=== PATIENT | female | born 1990 | race Caucasian/White ===

== ENCOUNTER 2018-06-06 11:34 | Outpatient (CLI) | payer MEDICAID, SELFPAY ==
[2018-06-06 14:07] LABS: ALT 37 U/L (12-78); AST 23 U/L (15-37); Albumin 3.3 g/dL (3.4-5.0); Alkaline Phosphatase 74 U/L (46-116); Bilirubin, Direct 0.11 mg/dL (0.00-0.20); Bilirubin, Total 0.3 mg/dL (0.2-1.0); Total Protein 6.6 g/dL (6.4-8.2)
== END 2018-06-06 11:35 ==
PROVIDERS: Advanced Practice Midwife; PCP Nurse Practitioner; Visit Provider Advanced Practice Midwife
DX: B18.2 Chronic viral hepatitis C (principal)
CPT/HCPCS: 36415; 80076

== ENCOUNTER 2018-06-08 18:05 | Outpatient (REF) | payer MEDICAID, SELFPAY | END 2018-06-08 18:06 | LOC: LBN 18:05 | PROVIDERS: PCP Nurse Practitioner; Visit Provider Nurse Practitioner | DX: J02.9 Acute pharyngitis, unspecified (principal) | CPT/HCPCS: 87070 ==

== ENCOUNTER 2018-07-07 14:03 | Outpatient (CLI) | payer MEDICAID, SELFPAY ==
--- NOTE | 2018-07-07 13:37 | DI.US_ITS ---
SYMPTOMS/DIAGNOSIS: ANATOMY SCAN, Z34.90 OBSTETRICAL ULTRASOUND: Many abnormalities cannot be diagnosed. A normal exam does not exclude a congenital anomaly. Radiology No. [id number] LMP: Exam Date: 07/07/2018 [facility] wks days on EDC ([facility]) 12/07/2018 Confirmed: HISTORY: ---- PREDICTED GESTATIONAL AGE NUMBER 18+1 weeks with a range of 17+1 weeks to 19+1 weeks. 1 Determined by___1STUS___LMP___HISTORY PLACENTA PRESENTATION Grade 0-I Cephalic_X__ Anterior___Posterior_X__ Breech____ Right Left Transverse(head right___ Fundal_X__Low-lying___Previa___ Transverse(head left___ Varying BIOMETRY AMNIOTIC FLUID BPD: NS Normal HC: NS AC: 155 mm 20.5 weeks FL: 31 mm 19+5 weeks AMNIOTIC FLUID INDEX >26 WK CRL: mm weeks Cisterna Magna: NS CI: NS RUQ: LUQ Cerebellum: NS EFW: grams Percentile RLQ: LLQ Total: cms Composite AGE= 20+2 wks EDC by US: 11/22/18 BIOPHYSICAL PROFILE ANATOMY IDENTIFIED SCORE 0/2 Heart: 4-Chamber_X__Rate:BPM 173 LVOT: X RVOT:___X Amniotic Fluid(>2cms)____ Stomach:__X Kidneys:__X Respirations (>30 secs) Bladder:___X Post. Fossa:__NS Body Flex/Extension 3-vessel cord:__X Ventricles:___X Cord insertion:__X___ Lips:__NS__ Extremity Flex/Extension Spinal morphology:___X Nose:_NS___ Total Score= Palate:___NS____ NS=not seen COMMENTS: There is a single living intrauterine gestation. Estimated sonographic age is 20 weeks 2 days. The placenta is posterior and fundal. No evidence of previa is identified. The fetus is in the cephalic presentation. heart rate is 173 beats per minute. No or placental abnormalities are identified. Facial features, posterior fossa and intracranial structures were obscured by the presentation. The patient is scheduled to return 07/22/18 for complete survey. IMPRESSION: Single living intrauterine gestation. Estimated sonographic age is 20 weeks 2 days.
== END 2018-07-07 14:23 ==
PROVIDERS: PCP Nurse Practitioner; Visit Provider Midwife
DX: Z34.82 Encounter for supervision of other normal pregnancy, second trimester (principal)
CPT/HCPCS: 76805

== ENCOUNTER 2018-07-08 09:32 | Emergency (ER) | payer MEDICAID, SELFPAY ==
[2018-07-08 09:36] VITALS: BP 106/60; PULSE 71; RESP 18; TEMP 36.8; O2SAT 99
--- NOTE | 2018-07-08 10:25 | W.ED.GENAD ---
Discharge Plan Disposition Patient Disposition: HOME Condition: Good Discharge Details Chief Complaint: FacialProb Clinical Impression: Acute serous otitis media of left ear Primary Care Provider: Nicole Tena ED Provider: Francis Beck Home Meds and New Rx's Prescriptions: Continue buprenorphine-naloxone [Suboxone] 1 EACH film 1 ea Sublingual DAILY RF: 0 PNV,calcium 63-exha-zqlre acid [ Plus (calcium carb)] 1 EACH tablet 1 tab-cap PO DAILY 30 Days Qty: 30 RF: 11 ondansetron [Zofran ODT] 8 MG tablet,disintegrating 8 mg PO TID Qty: 30 RF: 2 methylphenidate HCl [Ritalin] 20 MG tablet 20 mg PO TID Qty: 84 RF: 0 Discharge Instructions Instructions: Serous Otitis Media (ED) Additional Instructions: In addition to taking lzsb-jul-uhmyyke acetaminophen for pain control you may also use nasal saline flushes and irrigants such as simple saline. Just use as directed on packaging. If not improving over the next 2 weeks follow-up with your primary care provider for reassessment. Referrals: Nicole Tena, [employer]ER [Primary Care Provider] - 2 weeks (Follow-up with your primary care provider if not improving over the next 2 weeks) Medical Decision Making MDM Narrative Medical decision making narrative: Patient presenting to the emergency department for complaint of left ear pain for the past 10 days. Patient states that symptoms are preceded by some nasal congestion and sore throat which is now resolved but now has had continued intermittent ear pain with worsening discomfort lying down and with positional changes on left lateral position. Physical exam is unremarkable except for some small air-fluid level seen behind left TM with clear fluid present but no loss of landmarks, no erythema, no gross hearing loss, no other symptoms. I feel the patient has serous otitis media. Doubt mastoiditis, no infectious nature, no signs of parotiditis. Did discuss with patient continued use of acetaminophen due to for pain control and possibly using saline nasal flushes to see if that may help but otherwise patient should follow-up with her primary care in 2 weeks if symptoms are not improving or obtain close follow-up if she develops fever chills or worsening symptoms. After discussion of diagnosis and plan of care patient states no further needs questions or concerns at this time. HPI - General Adult General Mode of arrival: ambulatory. Date/Time Provider Initiated Documentation: 07/08/18 09:54. Limitations to Documentation: no limitations. Information obtained by: patient. History of Present Illness 27 year old F presents to the emergency department with the chief complaint of Left ear pain, described as moderate, with intensity rated at 7. Quality is described as aching, and is localized to the head (Ear) and left. Patient reports no radiation. Patient started experiencing this day(s) (10) and it has been intermittent. No relieving factors improve symptom(s), No exacerbating factors reported . Patient notes no other symptoms.. Patient did receive the following treatments prior to arrival, other (Acetaminophen) Related Data Home Medications Medication Instructions Recorded Confirmed buprenorphine-naloxone [Suboxone] 1 ea SUBLINGUAL DAILY film 02/03/17 07/08/18 Previous Rx's Medication Instructions Recorded PNV,calcium 87-bpyz-qwpcv acid 1 tab-cap PO DAILY 30 Days #30 04/14/18 [ Plus (calcium carb)] tab-cap ondansetron [Zofran ODT] 8 mg PO TID #30 tab-cap 05/09/18 methylphenidate HCl [Ritalin] 20 mg PO TID #84 tab-cap 06/06/18 Allergies Allergy/AdvReac Type Severity Reaction Status Date / Time No Known Allergies Allergy Unverified 07/08/18 09:46 General Stated Complaint: FacialProb STEFANO: 4 Review of Systems Constitutional Denies body ache(s), Denies chills and Denies fever(s) Eyes Patient denies, Denies dry eyes and Denies itchy eyes ENT Reports as per HPI, Denies vertigo, Denies dizziness, Denies ear discharge, Reports otalgia, Denies facial pain, Reports hearing loss (Interim), Reports mouth pain (Occasional drop), Reports nasal congestion (Intermittent now is a) and Denies sinus pain Cardiovascular Denies chest pain and Denies dyspnea Respiratory Denies cough and Denies dyspnea Gastrointestinal Denies abdominal pain, Denies nausea and Denies vomiting Genitourinary Reports other (Currently ) Integumentary/Breasts Denies rash Neurologic Denies confusion, Denies vertigo, Denies dizziness and Denies sensory deficit Psychiatric Denies confusion Allergic/Immunologic Denies itchy eyes [facility] Medical History Opioid abuse (Resolved) Social History adopted: Yes household members: significant other and children number of children: 1 Smoking/Tobacco Use Status: Current every day alcohol intake: never substance use type: former substance user seatbelt use: always Surgical History Tonsillectomy Exam Const General: cooperative, no acute distress and not ill appearing Orientation: alert, awake and oriented x3 HENMT Head: normal to inspection, normocephalic and atraumatic Ears: hearing grossly normal bilaterally, external ears normal, TM normal on the right, mastoids normal, no periauricular adenopathy and TM abnormal with fluid behind the TM on the left (clear with small air fluid levels) General nose exam: external nose normal Face and sinus: normal facial exam Mouth: oral mucosae normal, moist mucous membranes, no drooling, No abnormal TMJ, no trismus and No restricted motion Teeth and gingiva: dentition normal Throat: posterior oropharynx normal and tonsils absent Resp Effort & Inspection: normal respiratory effort, able to speak in complete sentences and no respiratory distress Auscultation: clear to auscultation bilaterally Cardio Rate: regular rate Rhythm: regular rhythm Heart Sounds: S1 normal, S2 normal, normal S1 and S2, no click, no gallops, no murmurs and no rubs Skin General skin exam: no rashes or lesions noted Neuro General: alert, awake, oriented x3, moves all extremities and no focal motor deficits Sensory Exam: no sensory deficits noted Course Vital Signs Temperature 36.8 C 07/08/18 09:36 Pulse 71 07/08/18 09:36 Respiratory Rate 07/08/18 09:36 Blood Pressure 106/60 07/08/18 09:36 Pulse Oximetry 99 07/08/18 09:36 Temperature 36.8 C 07/08/18 09:36 Pulse 71 07/08/18 09:36 Respiratory Rate 18 07/08/18 09:36 Blood Pressure 106/60 07/08/18 09:36 Pulse Oximetry 99 07/08/18 09:36
== END 2018-07-08 10:33 | disposition home or self-care (01) ==
LOC: ER 10:58
PROVIDERS: Emergency Provider Nurse Practitioner Family; PCP Nurse Practitioner
DX: H66.92 Otitis media, unspecified, left ear (principal); Z33.1 Pregnant state, incidental
CPT/HCPCS: 99282

== ENCOUNTER 2018-07-21 13:25 | Outpatient (CLI) | payer MEDICAID, SELFPAY ==
[2018-07-21 14:02] LABS: Glucose,1 Hr (Glucola) 87 mg/dL (80-140)
[2018-07-25 11:05] LABS: AFP 62.7 ng/mL; Calculated age at EDD 26 years; GA used in risk estimate Scan estimate; INHIBIN 138 pg/mL; IVF Pregnancy No; Initial or repeat testing Initial testing; Insulin dependent diabetes No; Maternal Weight 223 lbs; Number of Fetuses 1; Physician Phone Number 802-748-7300; Prev Down(T21)/Trisomy Pregnan No; Prev Pregnancy w/NTD No; RECOMMENDED FOLLOW UP None.; Results Summary Normal risk; hCG, TOTAL 3.1 IU/mL; hCG, TOTAL MoM 0.25 MoM; uE3 1.68 ng/mL; uE3 MoM 1.05 MoM
== END 2018-07-21 13:45 ==
PROVIDERS: PCP Nurse Practitioner; Visit Provider Advanced Practice Midwife
DX: Z34.92 Encounter for supervision of normal pregnancy, unspecified, second trimester (principal)
CPT/HCPCS: 36415; 81511; 82950

== ENCOUNTER 2018-07-27 00:52 | Outpatient (CLI) | payer MEDICAID, SELFPAY ==
--- NOTE | 2018-07-27 09:08 | DI.US_ITS ---
Many abnormalities cannot be diagnosed. A normal exam does not exclude a congenital anomaly. Radiology No. LMP: Exam Date: 07/27/18 [facility] 7 wks on EDC ([facility]) Confirmed: HISTORY: F/U TO COMPLETE SURVEY TO VISUALIZE MOUTH, LIPS, NOSE ---- PREDICTED GESTATIONAL AGE NUMBER 20.6 weeks with a range of 19.6 week to 21.6 weeks. 1 Determined by__X_1STUS___LMP___HISTORY Info. pertaining to fetus # PLACENTA PRESENTATION Grade I Cephalic___ Anterior___Posterior__X_ Breech___X_ Right Left Transverse(head right___ Fundal___Low-lying___Previa___ Transverse(head left___ Varying BIOMETRY AMNIOTIC FLUID BPD: 54 mm 22.2 weeks Normal HC: 200 mm 22.1 weeks AC: 209 mm 25.3 weeks FL: 36 mm 21.2 weeks AMNIOTIC FLUID INDEX >26 WK CRL: mm weeks Cisterna Magna: 4 mm CI: 0.8 RUQ: LUQ Cerebellum: 2.25 cm EFW: 594 grams Percentile RLQ: LLQ Total: cms Composite AGE= 22.6 wks EDC by US__11/24/18 BIOPHYSICAL PROFILE ANATOMY IDENTIFIED SCORE 0/2 Heart: 4-Chamber_X__Rate:BPM__137___ LVOT:___X RVOT: X___ Amniotic Fluid(>2cms)____ Stomach: Kidneys: Respirations (>30 secs) Bladder: Post. Fossa: Body Flex/Extension 3 vessel cord: Ventricles: cord insertion: Lips:__X__ Extremity Flex/Extension spinal morphology: Nose:X Total Score= Palate: NS=not seen Limited OB ultrasound was performed. There is a single living intrauterine gestation. The fetus is in the breech position. heart rate is 137 beats per minute. Estimated weight is 594 grams. The four chamber heart and both right and left ventricular outflow tracts were visualized and are unremarkable. The facial features are unremarkable. Estimated gestational age is 22 weeks 6 days. The placenta is posterior. Amniotic fluid appears within normal limits visually. IMPRESSION: Single living intrauterine gestation. Estimated sonographic age is 22 weeks 6 days.
== END 2018-07-27 01:12 ==
PROVIDERS: PCP Nurse Practitioner; Visit Provider Advanced Practice Midwife
DX: Z34.92 Encounter for supervision of normal pregnancy, unspecified, second trimester (principal); Z36.2 Encounter for other antenatal screening follow-up
CPT/HCPCS: 76815

== ENCOUNTER 2018-08-12 14:59 | Outpatient (REF) | payer MEDICAID, SELFPAY ==
[2018-08-12 17:01] LABS: *AMPHETAMINES SCREEN URINE Negative (Negative); *BARBITURATES SCREEN URINE Negative (Negative); *BENZODIAZEPINES SCREEN URINE Negative (Negative); Cannabinoids THC Negative (Negative); Cocaine Screen,Urine Negative (Negative); METHADONE URINE SCREEN Negative (Negative); OPIATES URINE SCREEN Negative (Negative)
[2018-08-12 17:03] LABS: Tricyclic Antidepressants Negative (Negative)
[2018-08-15 17:58] LABS: Buprenorphine 252.4 ng/mL; Norbuprenorphine 1298.4 ng/mL
== END 2018-08-12 15:19 ==
LOC: LBN 14:59
PROVIDERS: Advanced Practice Midwife; PCP Nurse Practitioner; Visit Provider Nurse Practitioner
DX: Z34.91 Encounter for supervision of normal pregnancy, unspecified, first trimester (principal)
CPT/HCPCS: 80307

== ENCOUNTER 2018-10-13 01:15 | Outpatient (CLI) | payer MEDICAID, SELFPAY ==
--- NOTE | 2018-10-13 11:30 | DI.US_ITS ---
SYMPTOMS/DIAGNOSIS: SERIAL GROWTH DUE TO RITALIN EXPOSURE, 32 WEEKS, Z34.90 OB ULTRASOUND: Many abnormalities cannot be diagnosed. A normal exam does not exclude a congenital anomaly. Radiology No. [id number] LMP: Exam Date: 10/13/2018 [facility] wks days on EDC ([facility]) Confirmed: HISTORY: PREDICTED GESTATIONAL AGE NUMBER 32+1 weeks with a range of 31+1 weeks to 33+1 weeks. 1 Determined by___1STUS___LMP___HISTORY PLACENTA PRESENTATION Grade II Cephalic__X_ Anterior___Posterior_X__ Breech____ Right Left___X____ Transverse(head right___ Fundal___Low-lying___Previa___ Transverse(head left___ Varying BIOMETRY AMNIOTIC FLUID BPD: 91 mm 36+6 weeks Normal HC: 340 mm 39 weeks Oligo Polyhydramnios AC: 294 mm 33+3 weeks FL: 62 mm 32+1 weeks AMNIOTIC FLUID INDEX >26 WK CRL: mm weeks Cisterna Magna: mm CI: RUQ: 3.8 LUQ: 3.9 Cerebellum: cm EFW: 2294 grams Percentile: 89th RLQ: 2.2 LLQ: 3.3 Total: 13.2 cm Composite AGE= wks EDC by US BIOPHYSICAL PROFILE ANATOMY IDENTIFIED SCORE 0/2 Heart: 4-Chamber___Rate:BPM 123 LVOT: RVOT: Amniotic Fluid(>2cms)____ Stomach: Kidneys: Respirations (>30 secs) Bladder: Post. Fossa: Body Flex/Extension 3 vessel cord: Ventricles: cord insertion: Lips:____ Extremity Flex/Extension spinal morphology: Nose: Total Score= Palate: NS=not seen COMMENTS: The examination was carried out according to the usual protocol and reveals a viable cephalic sims. There is an increase in the circumference of the head and BPD measurements, which are significantly ahead of the AC and FL measurements. No obvious anatomical abnormalities are demonstrated on this limited examination. The placenta is left posterior in position. The estimated weight would be in the range of 2294 g, which is in the 89th percentile. SUMMARY: Cephalomegaly is demonstrated and on this limited examination, no discrete information regarding the intracerebral anatomy could be provided. Given these findings, further assessment with a high risk ultrasound obtained at a tertiary center is suggested to further define the status of the fetus. These findings were conveyed to the patient's provider immediately following completion of the study on 10/13/2018 at 11:40 a.m.
== END 2018-10-13 01:35 ==
PROVIDERS: PCP Nurse Practitioner; Visit Provider Nurse Practitioner
DX: Z34.93 Encounter for supervision of normal pregnancy, unspecified, third trimester (principal); Z36.89 Encounter for other specified antenatal screening
CPT/HCPCS: 76816

== ENCOUNTER 2018-10-13 10:00 | Outpatient (CLI) | payer MEDICAID, SELFPAY ==
[2018-10-13 10:34] LABS: HCT 36.3 % (36.0-46.0); HGB 12.5 g/dL (12.0-15.5); Mean Corp. HGB Concentration 34.4 g/dL (32.0-36.0); Mean Corpuscular Hemoglobin 30.3 pg (27.0-33.0); Mean Corpuscular Volume 88.1 fL (80-95); Mean Platelet Volume 9.5 fL (8.0-11.0); Platelet Count 193 x1000/uL (130-400); RBC 4.12 m/cumm (4.00-5.20); White Blood Cell Count 9.51 k/cumm (4.4-10.8)
[2018-10-13 10:43] LABS: Glucose,1 Hr (Glucola) 80 mg/dL (80-140)
[2018-10-21 15:42] LABS: Result Summary NEGATIVE; Specimen WB Whole Blood
== END 2018-10-13 10:20 ==
PROVIDERS: PCP Nurse Practitioner; Visit Provider Advanced Practice Midwife
DX: Z34.93 Encounter for supervision of normal pregnancy, unspecified, third trimester (principal)
CPT/HCPCS: 36415; 82950; 85027; 81220

== ENCOUNTER 2018-11-10 11:47 | Outpatient (CLI) | payer MEDICAID, SELFPAY | END 2018-11-10 12:07 | PROVIDERS: PCP Nurse Practitioner; Visit Provider Advanced Practice Midwife | DX: O36.8130 Decreased fetal movements, third trimester, not applicable or unspecified (principal); Z3A.36 36 weeks gestation of pregnancy | CPT/HCPCS: 59025 ==

== ENCOUNTER 2018-11-10 13:05 | Outpatient (REF) | payer MEDICAID, SELFPAY | END 2018-11-10 13:25 | LOC: LBN 13:05 | PROVIDERS: PCP Nurse Practitioner; Visit Provider Nurse Practitioner | DX: Z34.93 Encounter for supervision of normal pregnancy, unspecified, third trimester (principal); Z36.85 Encounter for antenatal screening for Streptococcus B | CPT/HCPCS: 87081 ==

== ENCOUNTER 2018-11-15 14:42 | Outpatient (CLI) | payer MEDICAID, SELFPAY ==
[2018-11-15 15:29] LABS: HCT 36.4 % (36.0-46.0); HGB 12.2 g/dL (12.0-15.5); Mean Corp. HGB Concentration 33.5 g/dL (32.0-36.0); Mean Corpuscular Hemoglobin 29.5 pg (27.0-33.0); Mean Corpuscular Volume 88.1 fL (80-95); Mean Platelet Volume 10.2 fL (8.0-11.0); Platelet Count 222 x1000/uL (130-400); RBC 4.13 m/cumm (4.00-5.20)
[2018-11-17 09:34] LABS: HIV-1/2 Ag & Ab Screen Negative (NEGAT)
[2018-11-17 09:50] LABS: Hepatitis C Ab w Rflx HCV PCR Reactive (NEGAT)
== END 2018-11-15 15:02 ==
PROVIDERS: PCP Nurse Practitioner; Visit Provider Advanced Practice Midwife
DX: Z34.91 Encounter for supervision of normal pregnancy, unspecified, first trimester (principal); B19.20 Unspecified viral hepatitis C without hepatic coma; Z11.4 Encounter for screening for human immunodeficiency virus [HIV]
CPT/HCPCS: 36415; 85027; 86803; 87389; 87522

== ENCOUNTER 2018-11-23 13:38 | Outpatient (REF) | payer MEDICAID, SELFPAY ==
[2018-11-23 17:00] LABS: PROTEIN 24.6 mg/dL
[2018-11-23 17:11] LABS: Prot/Crea Ur Ratio 0.18
== END 2018-11-23 13:58 ==
LOC: LBN 13:38
PROVIDERS: PCP Nurse Practitioner; Visit Provider Advanced Practice Midwife
DX: Z34.93 Encounter for supervision of normal pregnancy, unspecified, third trimester (principal)
CPT/HCPCS: 82565; 84156

== ENCOUNTER 2018-11-29 12:01 | Inpatient (IN) | payer MEDICAID, SELFPAY ==
[2018-11-29 21:51] LABS: HCT 35.7 % (36.0-46.0); HGB 11.9 g/dL (12.0-15.5); Mean Corp. HGB Concentration 33.3 g/dL (32.0-36.0); Mean Corpuscular Hemoglobin 29.3 pg (27.0-33.0); Mean Corpuscular Volume 87.9 fL (80-95); Mean Platelet Volume 10.3 fL (8.0-11.0); Platelet Count 218 x1000/uL (130-400); RBC 4.06 m/cumm (4.00-5.20); RBC Distribution Width 13.2 % (11.7-14.6)
[2018-11-29] MEDS: Zolpidem 5 MG TAB 10 MG PO (22:37)
[2018-11-30] MEDS: Buprenorphine/Naloxone 8 mg/2 mg FILM 2 EACH SL (09:56)
[2018-11-30] MEDS: Lactated Ringers 1,000 ML 125 ML IV ×2 (14:10→21:54)
[2018-11-30] MEDS: Zolpidem 5 MG TAB 10 MG PO (22:33)
[2018-12-01] MEDS: Lactated Ringers 1,000 ML 125 ML IV ×2 (03:58→11:44)
[2018-12-01] MEDS: Buprenorphine/Naloxone 8 mg/2 mg FILM 2 EACH SL (11:43)
[2018-12-01] MEDS: Lidocaine 5% Patch 1 PATCH TP (18:00)
--- NOTE | 2018-12-01 18:37 | PLAC_PTH ---
PATIENT: Shoshana Rodriguez LOC: OBS U#:[id number] AGE/SX: 28/F ROOM: OBS.304 RE11/29/[address]: Daisy James RN : 1990 BED: A DIS: 12/03/2018 SPEC #: [id number] RECD: 12/02/18 12:35 STATUS: ROGER RETereso #: [id number] HUMPHREY: 12/01/18 18:[address]: Daisy James DEPT: Surgical Specimen RECD BY: Carisa Abbott ENTERED: 12/02/18 12:36 SP TYPE: PLAC OTHR DR: Nicole Tena APRN Tissues: 1 - PLACENTA (3RD TRIMESTER) Procedures: GROSS AND MICRO LEVEL 5 Comments: [id number]
[2018-12-01] MEDS: Methylergonovine 0.2 MG/ML VIAL (19:11)
[2018-12-01] MEDS: Oxytocin 10 UNITS/ML VIAL IM (21:00)
[2018-12-01] MEDS: Patch Removal 1 EACH TP (21:44)
[2018-12-02] MEDS: Acetaminophen 325 MG TAB 650 MG PO ×4 (00:46→14:37)
[2018-12-02] MEDS: Ibuprofen 600 MG TAB PO ×2 (05:26→14:37)
[2018-12-02] MEDS: Buprenorphine/Naloxone 8 mg/2 mg FILM 2 EACH SL (10:10)
[2018-12-02 20:49] LABS: HGB 9.3 g/dL (12.0-15.5); Mean Corp. HGB Concentration 33.2 g/dL (32.0-36.0); Mean Corpuscular Hemoglobin 29.4 pg (27.0-33.0); Mean Corpuscular Volume 88.6 fL (80-95); Mean Platelet Volume 10.5 fL (8.0-11.0); Platelet Count 182 x1000/uL (130-400); RBC 3.16 m/cumm (4.00-5.20); RBC Distribution Width 12.9 % (11.7-14.6); White Blood Cell Count 11.85 k/cumm (4.4-10.8)
[2018-12-03] MEDS: Ibuprofen 600 MG TAB PO (09:11)
[2018-12-03] MEDS: Acetaminophen 325 MG TAB 650 MG PO (09:11)
[2018-12-03] MEDS: Docusate Sodium 100 MG CAP PO (09:11)
[2018-12-03] MEDS: Buprenorphine/Naloxone 8 mg/2 mg FILM 2 EACH SL (10:38)
== END 2018-12-03 16:00 | disposition home or self-care (01) | DRG 806 ==
PROVIDERS: Advanced Practice Midwife; Admitting Provider Advanced Practice Midwife; PCP Nurse Practitioner; Visit Provider Advanced Practice Midwife
DX: O98.42 Viral hepatitis complicating childbirth (principal); O99.324 Drug use complicating childbirth; Z37.0 Single live birth; F11.20 Opioid dependence, uncomplicated; O99.334 Smoking (tobacco) complicating childbirth; O99.344 Other mental disorders complicating childbirth; F90.9 Attention-deficit hyperactivity disorder, unspecified type; B18.2 Chronic viral hepatitis C; F17.210 Nicotine dependence, cigarettes, uncomplicated; Z3A.39 39 weeks gestation of pregnancy; W19.XXXA Unspecified fall, initial encounter
CPT/HCPCS: 85027; 86850; 86900; 86901; 59200; 88307; G0378; J2210; J2590; J3490

== ENCOUNTER 2018-12-24 10:23 | Emergency (ER) | payer MEDICAID, SELFPAY ==
[2018-12-24 10:29] VITALS: BP 111/69; PULSE 103; RESP 18; TEMP 36.6; O2SAT 95
--- NOTE | 2018-12-24 10:40 | W.ED.GENAD ---
Discharge Plan Disposition Patient Disposition: HOME Condition: Good Discharge Details Chief Complaint: RespSymp Clinical Impression: Influenza Primary Care Provider: Nicole Tena ED Provider: Antonio Perdomo Home Meds and New Rx's Prescriptions: New oseltamivir [Tamiflu] 75 mg capsule 75 mg PO BID 5 Days Qty: 10 RF: 0 No Action methylphenidate HCl [Ritalin] 20 mg tablet 20 mg PO TID MDD 3 tabs Qty: 84 RF: 0 Suboxone 12-3 mg film See Patient Comments Sublingual DAILY RF: 0 Discharge Instructions Instructions: Influenza (ED) Additional Instructions: Please take the medication as directed. Please wash your hands frequently and use the facemask as directed. If you notice any worsening of your symptoms, or any new symptoms such as vomiting, diarrhea, fever, chills, shortness of breath, chest pain, numbness, weakness, or fainting , please return immediately to the emergency department for reevaluation. Please follow up with your primary care provider as soon as possible for reassessment and reevaluation. As always, it was a pleasure participating in your medical care today. Referrals: Nicole Tena, BEHAVIORAL HEALTH WORKER [Primary Care Provider] - Medical Decision Making This is a pleasant 28-year-old female who presents with signs and symptoms clinically consistent with influenza/viral upper respiratory infection. Her 2 children at home are flu positive, her is positive for flu. She shows no signs of an enteritis, clinical pneumonia, or other significant red flag or abnormality. We will start the patient on Tamiflu as her symptoms began within the last 24 hours. We discussed red flags for which to return, including the importance of handwashing, facemask use, avoidance of significant contact with a 3-week old. I have extensively reviewed the treatment plan and discharge instructions with the patient. I have addressed all patient concerns at this time. The patient was made aware of what symptoms to monitor for that would warrant a return to the emergency department. Discussed the plan with the patient, they demonstrate verbal understanding and agreement with our assessment and plan at this time. HPI General Date/Time Provider Initiated Documentation: 12/24/18 10:33. HPI Narrative: This is a 28-year-old female with no significant past medical history who presents today for evaluation of URI-like symptoms. Patient states that 12 hours ago she developed congestion, runny nose, chills, cough, myalgias. The patient's 2 children and significant other have all been diagnosed as flu positive. She does have a 3-week-old at home who is still asymptomatic. She denies any headache, neck pain, vomiting, diarrhea, numbness tingling or weakness. She denies any IV or illicit drug use. She denies any recent surgeries or pertinent family history. Related Data Home Medications Medication Instructions Recorded Confirmed buprenorphine 12 mg-naloxone 3 mg See Rx Instructions SUBLINGUAL 11/23/18 12/24/18 sublingual film DAILY film methylphenidate 20 mg tablet 20 mg PO TID #84 tab-cap MDD 3 tabs 12/05/18 12/24/18 oseltamivir [Tamiflu] 75 mg PO BID 5 Days #10 cap 12/24/18 Previous Rx's Medication Instructions Recorded methylphenidate 20 mg tablet 20 mg PO TID #84 tab-cap MDD 3 tabs 12/05/18 oseltamivir [Tamiflu] 75 mg PO BID 5 Days #10 cap 12/24/18 Allergies Allergy/AdvReac Type Severity Reaction Status Date / Time No Known Allergies Allergy Verified 12/24/18 10:33 General Stated Complaint: RespSymp STEFANO: 4 Review of Systems Review of Systems All systems reviewed & are unremarkable except as noted in HPI and below PFSH Social History adopted: Yes household members: significant other and children number of children: 1 highest education level completed: some college, no degree what type of physical activity do you participate in: regular exercise Smoking and Tabacco status: Current every day alcohol intake: never substance use type: former substance user Seatbelt use: always History History 2 Para 1 Hx # Term Pregnancies 1 Multiple births 0 Hx # Pregnancies 0 Ectopic pregnancies 0 AB induced 0 Hx Number of Living Children 1 AB spontaneous 0 Exam Narrative Exam Narrative: 1.Const: Well-nourished, Well-developed, appearing stated age 2.Eyes: PERRL, no conjunctival injection, and symmetrical lids. 3.ENT: Atraumatic external nose and ears. Moist MM. Neck: Symmetric, trachea midline, No thyromegaly. Patient demonstrates good movement of cervical neck. There is no nuchal rigidity, no nuchal tenderness. Patient is able to flex the neck without any difficulty or significant pain. Negative Kernig's and Brudzinski sign. No significant erythema in the posterior oropharynx. 4.CVS: +S1/S2, No murmurs or gallops. Peripheral pulses 2+ and equal in all extremities. Brisk capillary refill in all extremities. 5.RESP: Unlabored respiratory effort. Clear to auscultation bilaterally. No wheezes rales or rhonchi 6.GI: Soft, Nontender/Nondistended, No hepatosplenomegaly. No guarding or rebound. 7.MSK: Normocephalic/Atraumatic, Extremities w/o deformity or ttp No cyanosis or clubbing, Normal movement of all extremities 8.Skin: Warm, Dry. No rashes or lesions. 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 Sensation grossly intact, no focal neurologic deficits. 10.Psych: (AAO) x3. Appropriate mood and affect Course Vital Signs Temperature 36.6 C 12/24/18 10:29 Pulse 103 H 12/24/18 10:29 Respiratory Rate 18 12/24/18 10:29 Blood Pressure 111/69 12/24/18 10:29 Pulse Oximetry 95 12/24/18 10:29 Temperature 36.6 C 12/24/18 10:29 Temperature Source Skin 12/24/18 10:29 Pulse 103 H 12/24/18 10:29 Respiratory Rate 18 12/24/18 10:29 Respiratory Effort 12/24/18 10:31 Blood Pressure 111/69 12/24/18 10:29 Pulse Oximetry 95 12/24/18 10:29 Pain Level 7 12/24/18 10:29
[2018-12-24 10:46] VITALS: BP 111/69; PULSE 99; RESP 18; TEMP 36.6; O2SAT 95
== END 2018-12-24 10:58 | disposition home or self-care (01) ==
PROVIDERS: Emergency Provider Student in an Organized Health Care Education/Training Program; PCP Nurse Practitioner
DX: M79.10 Myalgia, unspecified site (principal); R09.81 Nasal congestion; J10.1 Influenza due to other identified influenza virus with other respiratory manifestations
CPT/HCPCS: 87449; 99283

== ENCOUNTER 2019-01-19 17:58 | Outpatient (REF) | payer MEDICAID, SELFPAY ==
--- NOTE | 2019-01-19 11:25 | PAPFT_PTH ---
PATIENT: Shoshana Rodriguez LOC: [facility] U#:[id number] AGE/SX: 28/F ROOM: RE01/19/[address]: Daisy James RN : 1990 BED: DIS: 01/19/2019 SPEC #: [id number] RECD: 01/19/19 18:10 STATUS: ROGER RETereso #: [id number] HUMPHREY: 01/19/19 11:[address]: Daisy James DEPT: [facility] Cytology RECD BY: Carisa Abbott ENTERED: 01/19/19 18:10 SP TYPE: PAPFT SOFIA DR: Nicole Tena APRN Tissues: 1 - CX/ENDOCX FOR PAP SMEARS Procedures: PAP THIN PREP/UVM Screening Comments: [id number] (UNSATISFACTORY FOR EVALUATION)
[2019-01-23 14:03] LABS: Chlamydia Result Negative; GC Result Negative; Specimen Description CERVIX
== END 2019-01-19 18:18 ==
LOC: LBN 17:58
PROVIDERS: PCP Nurse Practitioner; Visit Provider Advanced Practice Midwife
DX: Z39.2 Encounter for routine postpartum follow-up (principal); Z11.3 Encounter for screening for infections with a predominantly sexual mode of transmission; Z12.4 Encounter for screening for malignant neoplasm of cervix
CPT/HCPCS: 87491; 87591; 88142; 87480; 87510; 87660

== ENCOUNTER 2019-11-02 10:45 | Emergency (ER) | payer MEDICAID, SELFPAY ==
[2019-11-02 10:50] VITALS: BP 137/67; PULSE 86; RESP 16; TEMP 37.9; O2SAT 100
--- NOTE | 2019-11-02 10:59 | W.ED.GENAD ---
Discharge Plan Disposition Patient Disposition: HOME Condition: Stable Discharge Details Chief Complaint: GenMedical Clinical Impression: Influenza B Primary Care Provider: Uzma Hammond ED Provider: Wally Loemli Home Meds and New Rx's Prescriptions: Continued methylphenidate HCl [Ritalin] 20 mg Tablet 20 mg PO DAILY RF: 0 buprenorphine-naloxone [Suboxone] 12-3 mg Film 1 film BUCCAL Q24H RF: 0 Discharge Instructions Instructions: Influenza (ED) Medical Decision Making 29 yo female on suboxone and has been clear for 3 years per pt comes in with fevers, chills, dry cough and loose stools for 3 days. States her kids have had recent uri's. no recent travel, vomit, severe abdominal pain, rashes. Is speaking in full sentences on exam in no distress with clear lungs and no murmurs. suspect viral illness but will check strep as she has had a sore throat and also check for flu. Given normal o2 sat, no tachycardia and clear lungs do not feel xray indicated. No findings on exam to suggest rpa, well logging captain mud analysis or epiglotitis. pt positive for flu, is over 48 hours with symptoms so tamiflu not indicated. Will d/c and advised if worsening to return to the emergency department Differential Diagnosis Differential Diagnosis: influenza, bronchitis, pna, uri Lab Data Lab results reviewed: Yes I reviewed the patient's lab results. HPI General Mode of arrival: ambulatory. Date/Time Provider Initiated Documentation: 11/02/19 10:55. Limitations to Documentation: no limitations. Information obtained by: patient. History of Present Illness 29 year old F presents to the emergency department with the chief complaint of not feeling well, described as moderate, Patient started experiencing this day(s) (3) and it has been constant. No relieving factors improve symptom(s), No exacerbating factors reported . Patient did receive the following treatments prior to arrival, none Related Data Home Medications Medication Instructions Recorded Confirmed buprenorphine-naloxone [Suboxone] 1 film BUCCAL Q24H 11/02/19 11/02/19 methylphenidate HCl [Ritalin] 20 mg PO DAILY 11/02/19 11/02/19 Allergies Allergy/AdvReac Type Severity Reaction Status Date / Time No Known Allergies Allergy Unverified 11/02/19 10:57 General Stated Complaint: GenMedical STEFANO: 3 Review of Systems All systems reviewed & are unremarkable except as noted in HPI and below Constitutional Constitutional: Denies chills, Denies fever(s) and Denies weakness ENT Ears, Nose, Mouth, and Throat: Denies change in voice Cardiovascular Cardiovascular: Denies chest pain and Denies dyspnea Respiratory Respiratory: Denies cough and Denies dyspnea Gastrointestinal Gastrointestinal: Denies abdominal pain, Denies nausea and Denies vomiting Musculoskeletal Musculoskeletal: Denies joint swelling Neurologic Neurologic: Denies weakness [facility] Social History Smoking/Tobacco Use Status: Current every day Tobacco Type: cigarettes Alcohol Intake: never Drug use: Never Substance use type: does not use Do you feel safe at home: Yes Do you feel safe in your relationship?: Yes Exam Const General: no acute distress Orientation: alert HENMT Head: normal to inspection Ears: external ears normal General nose exam: external nose normal Mouth: moist mucous membranes Eyes General: appearance normal, both eyes and all related structures Neck Neck: normal visual inspection Resp Effort & Inspection: normal respiratory effort and able to speak in complete sentences Cardio Rate: regular rate Skin General skin exam: no rashes or lesions noted Neuro General: alert and oriented x3 Extrem General: normal to inspection Psych Mental Status: mental status grossly normal Course Vital Signs Vital signs: Vital Signs Temperature 37.9 C H 11/02/19 10:50 Pulse 86 11/02/19 10:50 Respiratory Rate 16 11/02/19 10:50 Blood Pressure 137/67 11/02/19 10:50 Pulse Oximetry 100 11/02/19 10:50 Temperature 37.9 C H 11/02/19 10:50 Temperature Source Temporal Artery Scan 11/02/19 10:50 Pulse 86 11/02/19 10:50 Respiratory Rate 16 11/02/19 10:50 Respiratory Effort Non-Labored 11/02/19 10:55 Blood Pressure 137/67 11/02/19 10:50 Blood Pressure Position Sitting 11/02/19 10:50 Pulse Oximetry 100 11/02/19 10:50 Oxygen Delivery Method Room Air 11/02/19 10:50 Oxygen Flow Rate 0 11/02/19 10:50 Pain Level 6 11/02/19 10:50 Lab/Test Results Lab/Test Results: 11/02/19 10:49 Nasopharynx Influenza Types A,B Antigen - Pending
== END 2019-11-02 11:31 | disposition home or self-care (01) ==
PROVIDERS: Emergency Provider Emergency Medicine; PCP Nurse Practitioner
DX: J10.1 Influenza due to other identified influenza virus with other respiratory manifestations (principal)
CPT/HCPCS: 87449; 87880; 99282; 87081

== ENCOUNTER 2020-07-07 15:54 | Emergency (ER) | payer MEDICAID, SELFPAY ==
[2020-07-07 15:58] VITALS: BP 118/65; PULSE 67; RESP 18; TEMP 36.5; O2SAT 99
--- NOTE | 2020-07-07 16:06 | ED.GENADUL_ITS ---
Discharge Plan Disposition Patient Disposition: HOME Condition: Good Discharge Details Clinical Impression: UTI (urinary tract infection) Primary Care Provider: Nicole Tena ED Provider: Antonio Perdomo Home Meds and New Rx's Prescriptions: New ciprofloxacin HCl 250 mg tablet 250 mg PO BID 5 Days Qty: 10 RF: 0 Continued divalproex [Depakote ER] 500 mg tablet extended release 24 hr 1,000 mg PO QHS Qty: 180 RF: 1 buprenorphine-naloxone [Suboxone] 12-3 mg film 1 film BUCCAL Q24H Qty: 30 RF: 1 methylphenidate HCl [Ritalin] 20 mg tablet 20 mg PO TID MDD 3 tabs Qty: 84 RF: 0 Discharge Instructions Instructions: Urinary Tract Infection in Women (ED) Additional Instructions: At this time your urinalysis is consistent with urinary tract infection. Please take the antibiotic Cipro as directed. As we discussed together there is maryellen rn that this can damage your tendons, if you notice any pain or tenderness in your tendons or ligaments please start taking the antibiotic and perform no vigorous activities. Please drink plenty of fluids and take plenty of cranberry juice. If you notice any worsening of your symptoms, or any new symptoms such as vomiting, diarrhea, fever, chills, shortness of breath, chest pain, numbness, weakness, or fainting , please return immediately to the emergency department for reevaluation. Please follow up with your primary care provider as soon as possible for reassessment and reevaluation. As always, it was a pleasure participating in your medical care today. Referrals: Nicole Tena, [employer] [Primary Care Provider] - Medical Decision Making 29-year-old female with a past medical history of OCD, bipolar, and history of a double kidney who presents today for evaluation of UTI-like symptoms. The patient states that for the last week she has had burning, increased frequency, she states that her symptoms feel identical to previous urinary tract infections that she has had. She denies any nausea, vomiting, diarrhea, fever, chills, flank pain, vaginal discharge. She denies any recent antibiotic use. She has no other complaints at this time. Physical exam demonstrates no flank or CVA tenderness, no suprapubic tenderness. No history of fever. Vital signs notably stable. Urinalysis has returned positive UTI. There is mild amount of blood. I discussed radiologic options of CT scan for kidney stone, however clinically the patient does not demonstrate signs or symptoms clinically consistent with a kidney stone at all. They are shared decision making process with patient would like to hold off for the time being, which is notably reasonable considering the current clinical picture. Patient has had notable success in her past with urinary tract infections with Cipro. We will get this again, however I did discuss with her the importance of and concern for tendon irritation and damage. We discussed risk factors for this, as well as appropriate behaviors. We will give first dose of Cipro 250 mg here. Prescription for home use. I have extensively reviewed the treatment plan and discharge instructions with the patient. I have addressed all patient concerns at this time. The patient was made aware of what symptoms to monitor for that would warrant a return to the emergency department. Discussed the plan with the patient, they demonstrate verbal understanding and agreement with our assessment and plan at this time. HPI General Date/Time Provider Initiated Documentation: 07/07/20 15:56 . HPI Narrative: 29-year-old female with a past medical history of OCD, bipolar, and history of a double kidney who presents today for evaluation of UTI-like symptoms. The patient states that for the last week she has had burning, increased frequency, she states that her symptoms feel identical to previous urinary tract infections that she has had. She denies any nausea, vomiting, diarrhea, fever, chills, flank pain, vaginal discharge. She denies any recent antibiotic use. She has no other complaints at this time. Related Data Home Medications Medication Instructions Recorded Confirmed divalproex 500 mg tablet,extended 1,000 mg PO QHS #180 tab 05/09/20 07/07/20 release 24 hr buprenorphine 12 mg-naloxone 3 mg 1 film BUCCAL Q24H #30 each 06/11/20 07/07/20 sublingual film methylphenidate HCl 20 mg tablet 20 mg PO TID #84 tab-cap MDD 3 tabs 06/11/20 07/07/20 ciprofloxacin HCl 250 mg PO BID 5 Days #10 tab 07/07/20 Previous Rx's Medication Instructions Recorded divalproex 500 mg tablet,extended 1,000 mg PO QHS #180 tab 05/09/20 release 24 hr buprenorphine 12 mg-naloxone 3 mg 1 film BUCCAL Q24H #30 each 06/11/20 sublingual film methylphenidate HCl 20 mg tablet 20 mg PO TID #84 tab-cap MDD 3 tabs 06/11/20 ciprofloxacin HCl 250 mg PO BID 5 Days #10 tab 07/07/20 Allergies Allergy/AdvReac Type Severity Reaction Status Date / Time No Known Allergies Allergy Verified 05/07/20 15:11 General Stated Complaint: Urinary STEFANO: 4 Review of Systems All systems reviewed & are unremarkable except as noted in HPI and below PFSH Medical History Anxiety Depression Mood swings Opioid abuse Hx of heroin use. Enrolled in [facility] and stopped treatment. + opioids and Subutex on urine tox. Opioid dependence on agonist therapy Surgical History S/P tonsillectomy Family History Mother Alcohol abuse Bipolar affective disorder Substance abuse Social History Smoking/Tobacco Use Status: Current every day Tobacco Type: cigarettes Alcohol Intake: never Drug use: Never Substance use type: does not use Adopted: Yes Household members: significant other and children Housing: house Number of Children: 2 Pets and animals: Yes Pets and animals: dog(s) What is your relationship status?: living with partner Panel score (0-1 are the most socially isolated patients): 1 What type of physical activity do you participate in: regular exercise Duration: 45-60 minutes/day Frequency: 5-6 times per week Seatbelt use: always Do you feel safe at home: Yes Do you feel safe in your relationship?: Yes History History 2 Para 2 Hx # Term Pregnancies 2 Multiple births 0 Hx # Pregnancies 0 Ectopic pregnancies 0 AB induced 0 Hx Number of Living Children 2 AB spontaneous 0 Past Pregnancies Del. Date GA/Weeks # Outcome Route Wgt Sex Labor Lgth Anesthes ia Location Prov Compl 09/17/16 41 No Successful vaginal 3.657 kg Male 8 hrs [facility] [place] 12/01/18 39 No Successful vaginal 4.026 kg Male 2 hrs. 7 min. Exam Narrative Exam Narrative: 1.Const: Well-nourished, Well-developed, appearing stated age 2.Eyes: PERRL, no conjunctival injection, and symmetrical lids. 3.ENT: Atraumatic external nose and ears. Moist MM. Neck: Symmetric, trachea midline, No thyromegaly. 4.CVS: +S1/S2, No murmurs or gallops. Peripheral pulses 2+ and equal in all extremities. Brisk capillary refill in all extremities. 5.RESP: Unlabored respiratory effort. Clear to auscultation bilaterally. No wheezes rales or rhonchi 6.GI: Soft, Nontender/Nondistended, No hepatosplenomegaly. No guarding or rebound. No flank or CVA tenderness. No pelvic tenderness. 7.MSK: Normocephalic/Atraumatic, Extremities w/o deformity or ttp No cyanosis or clubbing, Normal movement of all extremities 8.Skin: Warm, Dry. No rashes or lesions. 9.Neuro: inserter II-XII grossly intact. Sensation grossly intact, no focal neurologic deficits. 10.Psych: (AAO) x3. Appropriate mood and affect Course Vital Signs Vital signs: Vital Signs Temperature 36.5 C 07/07/20 15:58 Pulse 67 07/07/20 15:58 Respiratory Rate 18 07/07/20 15:58 Blood Pressure 118/65 07/07/20 15:58 Pulse Oximetry 99 07/07/20 15:58 Temperature 36.5 C 07/07/20 15:58 Temperature Source Skin 07/07/20 15:58 Pulse 67 07/07/20 15:58 Respiratory Rate 18 07/07/20 15:58 Blood Pressure 118/65 07/07/20 15:58 Blood Pressure Position Sitting 07/07/20 15:58 Pulse Oximetry 99 07/07/20 15:58 Oxygen Delivery Method Room Air 07/07/20 15:58 Oxygen Flow Rate 0 07/07/20 15:58 Pain Level 5 07/07/20 15:58
[2020-07-07 16:19] LABS: Bilirubin Negative (Negative); Blood Small (Negative); Clarity Sl Cloudy (Clear); Glucose Negative (Negative); Ketones Negative (Negative); Leukocyte Esterase Moderate (Negative); Nitrite Negative (Negative); Specific Gravity 1.025 (1.005-1.025); Urobilinogen 0.2 EU/dL (Up TO 0.2); pH 5.5 (5-8)
[2020-07-07 16:30] LABS: RBC Negative HPF (0-2); WBC >50 HPF (0-5)
[2020-07-07 16:31] LABS: Bacteria Many HPF (Negative); C & S Indicated? Yes; Casts Negative LPF (Negative); Crystals Negative HPF (Negative); Epithelial Cells Negative HPF (Negative); Mucus Negative (Negative)
[2020-07-07] MEDS: Ciprofloxacin 250 MG TAB PO (16:32)
--- NOTE | 2020-07-09 15:54 | W.ED.FU ---
Follow Up Plan: Left message for patient to call back regarding culture results.
--- NOTE | 2020-07-09 16:04 | W.ED.FU ---
Patient called back and will be placed on nitrofurantoin for 1 week's time based on culture result. She understands she is to stop the previously prescribed ciprofloxacin
== END 2020-07-07 16:48 | disposition home or self-care (01) ==
LOC: ER 16:49
PROVIDERS: Emergency Provider Student in an Organized Health Care Education/Training Program; PCP Nurse Practitioner
DX: N39.0 Urinary tract infection, site not specified (principal); B96.20 Unspecified Escherichia coli [E. coli] as the cause of diseases classified elsewhere; Z87.440 Personal history of urinary (tract) infections
CPT/HCPCS: 87077; 99283; 81003; 81015; 87086; 87186; 99284

== ENCOUNTER 2020-09-09 18:04 | Emergency (ER) | payer MEDICAID, SELFPAY ==
[2020-09-09] MEDS: Bupivacaine 0.5% Pres-Free 30 ML VIAL (18:17)
[2020-09-09 18:20] VITALS: BP 139/84; PULSE 64; RESP 16; TEMP 36.8; O2SAT 98
--- NOTE | 2020-09-09 18:22 | W.ED.GENAD ---
Discharge Plan Disposition Patient Disposition: HOME Condition: Good Discharge Details Clinical Impression: Pain, dental Primary Care Provider: Nicole Tena ED Provider: Antonio Perdomo Home Meds and New Rx's Prescriptions: New penicillin V potassium 500 mg tablet 500 mg PO QID 10 Days Qty: 40 RF: 0 Continued buprenorphine-naloxone [Suboxone] 8-2 mg film 1 film sublingual DAILY MDD 10 mg Qty: 28 RF: 2 divalproex [Depakote ER] 500 mg tablet extended release 24 hr 1,000 mg PO QHS Qty: 180 RF: 1 methylphenidate HCl [Ritalin] 10 mg tablet 20 mg PO TID MDD 60 mg Qty: 168 RF: 0 Discharge Instructions Instructions: Toothache (ED) Additional Instructions: At this time you have a mild infection around your tooth. Please take the antibiotic as directed. Please take 1000 mg of Tylenol every 6 hours and 800 mg of ibuprofen every 6 hours to help with the pain. Please follow-up closely with your dentist. Additionally we have provided you with a dental sheet which has all of the dentist for the area, some of which may be able to get you in earlier for the needed surgery. If you notice any worsening of your symptoms, or any new symptoms such as vomiting, diarrhea, fever, chills, shortness of breath, chest pain, numbness, weakness, or fainting , please return immediately to the emergency department for reevaluation. Please follow up with your primary care provider as soon as possible for reassessment and reevaluation. As always, it was a pleasure participating in your medical care today. Referrals: Nicole Tena, EMMIE [Primary Care Provider] - Medical Decision Making 30-year-old female with a past medical history of bipolar, OCD, ADD, methadone use, presents today for evaluation of left lower tooth pain. She states that she has a history of dental caries, she has seen the dentist and had the tooth partially pulled but now she needs neurosurgeon for complete surgical management. She has had notable pain over the last few days. She has been taking NSAIDs without improvement. She denies fever or chills. No other complaints at this time. No other modifying factors. Physical exam demonstrates notable dental caries in the left lower posterior molar. No periapical abscess, dental block was performed, patient tolerated well. Notable improvement of her symptoms. Will recommend continued NSAIDs at home, we will give penicillin here is the first dose and prescription for home use. Recommended close follow-up with oral surgeon. I have extensively reviewed the treatment plan and discharge instructions with the patient. I have addressed all patient concerns at this time. The patient was made aware of what symptoms to monitor for that would warrant a return to the emergency department. Discussed the plan with the patient, they demonstrate verbal understanding and agreement with our assessment and plan at this time. HPI General Date/Time Provider Initiated Documentation: 09/09/20 18:06. HPI Narrative: 30-year-old female with a past medical history of bipolar, OCD, ADD, methadone use, presents today for evaluation of left lower tooth pain. She states that she has a history of dental caries, she has seen the dentist and had the tooth partially pulled but now she needs neurosurgeon for complete surgical management. She has had notable pain over the last few days. She has been taking NSAIDs without improvement. She denies fever or chills. No other complaints at this time. No other modifying factors. Related Data Home Medications Medication Instructions Recorded Confirmed divalproex 500 mg tablet,extended 1,000 mg PO QHS #180 tab 05/09/20 09/09/20 release 24 hr buprenorphine 8 mg-naloxone 2 mg 1 film SUBLINGUAL DAILY #28 ea MDD 07/30/20 09/09/20 sublingual film 10 mg methylphenidate HCl 10 mg tablet 20 mg PO TID #168 tab MDD 60 mg 07/30/20 09/09/20 penicillin V potassium 500 mg PO QID 10 Days #40 tab 09/09/20 Previous Rx's Medication Instructions Recorded divalproex 500 mg tablet,extended 1,000 mg PO QHS #180 tab 05/09/20 release 24 hr buprenorphine 8 mg-naloxone 2 mg 1 film SUBLINGUAL DAILY #28 ea MDD 07/30/20 sublingual film 10 mg methylphenidate HCl 10 mg tablet 20 mg PO TID #168 tab MDD 60 mg 07/30/20 penicillin V potassium 500 mg PO QID 10 Days #40 tab 09/09/20 Allergies Allergy/AdvReac Type Severity Reaction Status Date / Time No Known Allergies Allergy Verified 09/09/20 18:24 General Stated Complaint: DentalOral STEFANO: 4 Review of Systems All systems reviewed & are unremarkable except as noted in HPI and below [facility] Medical History Anxiety Depression Mood swings Opioid abuse Hx of heroin use. Enrolled in [facility] and stopped treatment. + opioids and Subutex on urine tox. Opioid dependence on agonist therapy Surgical History S/P tonsillectomy Family History Mother Alcohol abuse Bipolar affective disorder Substance abuse Social History Smoking/Tobacco Use Status: Current every day Tobacco Type: cigarettes Smoking risk assessment performed?: Yes Alcohol Intake: never Drug use: Never Substance use type: does not use Adopted: Yes Household members: significant other and children Housing: house Number of Children: 2 Pets and animals: Yes Pets and animals: dog(s) What is your relationship status?: living with partner Panel score (0-1 are the most socially isolated patients): 1 What type of physical activity do you participate in: regular exercise Duration: 45-60 minutes/day Frequency: 5-6 times per week Seatbelt use: always Do you feel safe at home: Yes Do you feel safe in your relationship?: Yes History History 2 Para 2 Hx # Term Pregnancies 2 Multiple births 0 Hx # Pregnancies 0 Ectopic pregnancies 0 AB induced 0 Hx Number of Living Children 2 AB spontaneous 0 Past Pregnancies Del. Date GA/Weeks # Outcome Route Wgt Sex Labor Lgth Anesthesia Location Prov Complic 09/17/16 41 No Successful vaginal 3657.088 g Male [address] [facility] - [place] 12/01/18 39 No Successful vaginal 4025.632 g Male 2 hrs. 7 min. Exam Narrative Exam Narrative: 1.Const: Well-nourished, Well-developed, appearing stated age 2.Eyes: PERRL, no conjunctival injection, and symmetrical lids. 3.ENT: Atraumatic external nose and ears. Moist MM. Neck: Symmetric, trachea midline, No thyromegaly. Notable dental caries throughout, primarily in the left posterior lower molar. No periapical abscess. No signs of airway compromise, or Ludewig's angina. 4.CVS: +S1/S2, No murmurs or gallops. Peripheral pulses 2+ and equal in all extremities. Brisk capillary refill in all extremities. 5.RESP: Unlabored respiratory effort. Clear to auscultation bilaterally. No wheezes rales or rhonchi 6.GI: Soft, Nontender/Nondistended, No hepatosplenomegaly. No guarding or rebound. 7.MSK: Normocephalic/Atraumatic, Extremities w/o deformity or ttp No cyanosis or clubbing, Normal movement of all extremities 8.Skin: Warm, Dry. No rashes or lesions. 9.Neuro: talent acquisition program manager II-XII grossly intact. Sensation grossly intact, no focal neurologic deficits. 10.Psych: (AAO) x3. Appropriate mood and affect Course Vital Signs Vital signs: Pain Level 10 09/09/20 18:11 Procedures Nerve Block Nerve Block 1: Time out performed: Yes Local Anesthetic: Bupivicaine 0.5% Amount of anesthesia used (mL): 6 Side: left Intraoral Nerve Block: inferior alveolar Procedure Successful: Yes Patient Tolerated Procedure: well Complications: none
[2020-09-09] MEDS: Penicillin V POTASSIUM 500 MG TAB, 4 TABS/BTL PO (18:27)
== END 2020-09-09 20:40 | disposition home or self-care (01) ==
PROVIDERS: Emergency Provider Student in an Organized Health Care Education/Training Program; PCP Nurse Practitioner
DX: R68.84 Jaw pain (principal); K04.7 Periapical abscess without sinus
CPT/HCPCS: 99283

== ENCOUNTER 2020-09-18 21:53 | Emergency (ER) | payer MEDICAID, SELFPAY ==
--- NOTE | 2020-09-18 21:53 | ED.GENADUL_ITS ---
Discharge Plan Disposition Patient Disposition: HOME Condition: Good Discharge Details Clinical Impression: Pain, dental Primary Care Provider: Nicole Tena ED Provider: Jerica Avila Home Meds and New Rx's Prescriptions: Continued buprenorphine-naloxone [Suboxone] 8-2 mg film 1 film sublingual DAILY MDD 10 mg Qty: 28 RF: 2 divalproex [Depakote ER] 500 mg tablet extended release 24 hr 1,000 mg PO QHS Qty: 180 RF: 1 methylphenidate HCl [Ritalin] 10 mg tablet 20 mg PO TID MDD 60 mg Qty: 168 RF: 0 penicillin V potassium 500 mg tablet 500 mg PO QID 10 Days Qty: 40 RF: 0 Discharge Instructions Instructions: Toothache (ED) Additional Instructions: At this time, I do not see any evidence to suggest infection. This seems a more chronic pain associated with your broken tooth. You need follow-up with a dentist. Attached is a list of local dentist. Please refer to this and call on Wednesday to schedule follow-up appointment as soon as possible. If develop fever/chills, swelling, increased pain or other new/worsening symptoms please seek care urgently once again. Referrals: Nicole Tena, FREELANCE WRITER [Primary Care Provider] - Medical Decision Making Patient is a 30-year-old female presented with chief complaint of left lower dental pain. She reports she had the same pain in the past several months. Today patient treated 4 times with antibiotic and this is never improved her sy mptoms. Patient was seen here last week for the same. She is requesting a dental block. She reports that she has a dentist locally but that none of them have taken her insurance. She denies any fevers or chills. No change in pain. No radiating pain. On exam, patient appears nontoxic. Normal ear exam, no lymphadenopathy. She has a fractured #17 tooth both lateral along the gumline as well as lingually along the top of the tooth. Not appreciate swelling, erythema or evidence to suggest abscess or infection. The patient has been on so many antibiotics recently, I am concerned that continuing to treat with antibiotics may increase her risk for adverse reaction such as C. difficile. Rather, I feel that she needs treatment with a dentist. We will give her a list of local dentist, pa rticularly those that except Medicaid. Patient I discussed her/benefits as well as expected procedural steps associated with block. Patient was understanding and wished to proceed. Patient prefers localized block to the affected tooth. Block was completed using 0.5% Bupivicaine plain. This was unsuccessful, patient ctoninue to have pain. Repeat block was preformed by Dr. Piña with fair improvement of her pain. Patient and I discussed abx, will hold off on further abx. I am concerned that continuing to prescribe these will cuase more detriment than good, particularly as she has not had relief. L:ist of local dentists given, we highlighted the dentsists that will accept her insurance for her. I advised she call on next business day. Return precautions were discussed, in particular signs of infection. Dental wax was given for fractured areas. All of her quesitons and concerns were addressed, she is in agrement with this plan. HPI General Mode of arrival: ambulatory . Date/Time Provider Initiated Documentation: 09/18/20 21:53 . Limitations to Documentation: no limitations . Information obtained by: patient, RN notes reviewed and old records reviewed . History of Present Illness 30 year old F presents to the emergency department with the chief complaint of left lower dental pain, described as severe and similar to prior episodes, with intensity rated at >10. Quality is described as stabbing, and is localized to the mouth. Patient reports no radiation. Patient started experiencing this month(s) and it has been constant. No relieving factors improve symptom(s), No exacerbating factors reported . Patient notes no other symptoms.. Patient did receive the following treatments prior to arrival, none Related Data Home Medications Medication Instructions Recorded Confirmed divalproex 500 mg tablet,extended 1,000 mg PO QHS #180 tab 05/09/20 09/09/20 release 24 hr buprenorphine 8 mg-naloxone 2 mg 1 film SUBLINGUAL DAILY #28 ea MDD 07/30/20 09/09/20 sublingual film 10 mg penicillin V potassium 500 mg PO QID 10 Days #40 tab 09/09/20 methylphenidate HCl 10 mg tablet 20 mg PO TID #168 tab MDD 60 mg 09/16/20 Previous Rx's Medication Instructions Recorded divalproex 500 mg tablet,extended 1,000 mg PO QHS #180 tab 05/09/20 release 24 hr buprenorphine 8 mg-naloxone 2 mg 1 film SUBLINGUAL DAILY #28 ea MDD 07/30/20 sublingual film 10 mg penicillin V potassium 500 mg PO QID 10 Days #40 tab 09/09/20 methylphenidate HCl 10 mg tablet 20 mg PO TID #168 tab MDD 60 mg 09/16/20 Allergies Allergy/AdvReac Type Severity Reaction Status Date / Time No Known Allergies Allergy Verified 09/09/20 18:24 General STEFANO: 4 Review of Systems Constitutional Constitutional: Reports as per HPI, Denies chills, Denies fatigue, Denies fever(s), Denies headache(s) and Denies poor appetite Eyes Eyes: Denies change in vision and Denies irritation ENT Ears, Nose, Mouth, and Throat: Reports as per HPI, Reports dental pain, Denies dysphagia, Denies dizziness, Denies dry mouth, Denies ear discharge, Denies rotary saw operator lgia, Reports facial pain, Denies headache(s), Denies hoarseness, Denies lip swelling, Denies nasal congestion, Denies odynophagia and Denies sore throat Cardiovascular Cardiovascular: Reports as per HPI and Denies chest pain Respiratory Respiratory: Reports as per HPI and Denies cough Gastrointestinal Gastrointestinal: Reports as per HPI, Denies dysphagia, Denies nausea, Denies odynophagia and Denies vomiting Integumentary/Breasts Skin/Breast: Reports as per HPI, Denies erythema, Denies rash and Denies skin pain Neurologic Neurologic: Reports as per HPI, Denies dizziness and Denies headache(s) Endocrine Endocrine: Denies fatigue Allergic/Immunologic Allergic/Immunologic: Denies lip swelling PFSH Medical History Anxiety Depression Mood swings Opioid abuse Hx of heroin use. Enrolled in [facility] and stopped treatment. + opioids and Subutex on urine tox. Opioid dependence on agonist therapy Surgical History S/P tonsillectomy Family History Mother Alcohol abuse Bipolar affective disorder Substance abuse Social History Smoking/Tobacco Use Status: Current every day Tobacco Type: cigarettes Smoking risk assessment performed?: Yes Alcohol Intake: never Drug use: Never Substance use type: does not use Adopted: Yes Household members: significant other and children Housing: house Number of Children: 2 Pets and animals: Yes Pets and animals: dog(s) What is your relationship status?: living with partner Panel score (0-1 are the most socially isolated patients): 1 What type of physical activity do you participate in: regular exercise Duration: 45-60 minutes/day Frequency: 5-6 times per week Seatbelt use: always Do you feel safe at home: Yes Do you feel safe in your relationship?: Yes History History 2 Para 2 Hx # Term Pregnancies 2 Multiple births 0 Hx # Pregnancies 0 Ectopic pregnancies 0 AB induced 0 Hx Number of Living Children 2 AB spontaneous 0 Past Pregnancies Del. Date GA/Weeks # Outcome Route Wgt Sex Labor Lgth Anesthes ia Location Prov Complic 09/17/16 41 No Successful vaginal 3657.088 g Male 8 hrs [facility] - [place] 12/01/18 39 No Successful vaginal 4025.632 g Male 2 hrs. 7 min. Exam Const General: cooperative, healthy appearing, comfortable, no acute distress, well developed and well groomed Nutritional Appearance: average body habitus and well nourished Orientation: alert and awake HENMT Head: normal to inspection, normocephalic and atraumatic Ears: hearing grossly normal bilaterally, external ears normal and TM's normal bilaterally General nose exam: external nose normal and nares normal Face and sinus: normal facial exam, sinuses nontender and face symmetric Mouth: oral mucosae normal, lip normal, tongue normal, no audible dysphonia, no drooling, no muffled voice, no trismus and No restricted motion Teeth and gingiva: gingiva normal and caries (2 areas of fracture at the #16 tooth, this is the area of pain) Throat: posterior oropharynx normal, tonsils normal and uvula midline Eyes General: appearance normal, both eyes and all related structures Neck Neck: normal visual inspection, full ROM, no lymphadenopathy, supple and no anterior neck swelling Resp Effort & Inspection: normal respiratory effort, able to speak in complete sentences and no respiratory distress Auscultation: clear to auscultation bilaterally, no rales, no rhonchi and no wheezes Cardio Rate: regular rate Rhythm: regular rhythm Heart Sounds: S1 normal and S2 normal Skin General skin exam: no rashes or lesions noted Trauma: no lacerations or abrasions Neuro General: patient alert and patient awake Cognition: normal cognition Speech: speech normal Gait: normal gait Psych Appearance: grossly normal and well kempt Mental Status: mental status grossly normal Speech and Movement: speech and movement normal
[2020-09-18 21:56] VITALS: BP 135/82; PULSE 87; RESP 18; TEMP 37.5; O2SAT 98
[2020-09-18] MEDS: Bupivacaine 0.5% Pres-Free 30 ML VIAL (22:17)
== END 2020-09-18 22:40 | disposition home or self-care (01) ==
LOC: ER 22:36
PROVIDERS: Emergency Provider Physician Assistant; PCP Nurse Practitioner
DX: S02.5XXA Fracture of tooth (traumatic), initial encounter for closed fracture (principal); X58.XXXA Exposure to other specified factors, initial encounter; R68.84 Jaw pain
CPT/HCPCS: 64450

== ENCOUNTER 2020-09-19 21:15 | Emergency (ER) | payer MEDICAID, SELFPAY ==
--- NOTE | 2020-09-19 21:12 | W.ED.GENAD ---
Discharge Plan Disposition Patient Disposition: HOME Condition: Good Discharge Details Clinical Impression: Pain, dental Primary Care Provider: Nicole Tena ED Provider: Jerica Avila Home Meds and New Rx's Prescriptions: Continued buprenorphine-naloxone [Suboxone] 8-2 mg film 1 film sublingual DAILY MDD 10 mg Qty: 28 RF: 2 divalproex [Depakote ER] 500 mg tablet extended release 24 hr 1,000 mg PO QHS Qty: 180 RF: 1 methylphenidate HCl [Ritalin] 10 mg tablet 20 mg PO TID MDD 60 mg Qty: 168 RF: 0 penicillin V potassium 500 mg tablet 500 mg PO QID 10 Days Qty: 40 RF: 0 Discharge Instructions Instructions: Benzocaine (By mouth), Toothache (ED) Additional Instructions: Please keep your dentist appointment tomorrow morning. May continue with Tylenol and ibuprofen as needed for discomfort. You may use the benzocaine given here today up to 4 times daily to help with discomfort. If develop any fevers, chills, swelling or other new/worsening symptoms please seek care urgently once again. Referrals: Nicole Tena, BUTTERMAKER [Primary Care Provider] - Medical Decision Making Patient is 30-year-old female brought in via EMS with chief complaint of left lower dental pain. Patient was seen here yesterday for the same. At that time, she did undergo a dental block and is hoping for the same once again. In the interim since we have seen her last night, she denies having any change in her pain. No swelling. No fevers or chills. Patient has had this pain for several months and has not been alleviated with antibiotics despite 4 current courses thus far. She states that she did call dentist today was able to find family to do a dental extraction tomorrow morning. Exam is reassuring and unchanged from yesterday. I expressed my concern that with repetitive dental blocks particular she has been a having a dental block performed in less than 12 hours by her dentist. She actually admits to being quite comfortable at this point particularly with cool compress on her cheek. She is agreeable to trying topical options of Hurricaine gel. She will keep her appointment tomorrow morning. All the questions and concerns were addressed and she is agreement this plan. HPI General Mode of arrival: EMS. Date/Time Provider Initiated Documentation: 09/19/20 21:43. Limitations to Documentation: no limitations. Information obtained by: patient, EMS and RN notes reviewed. History of Present Illness 30 year old F presents to the emergency department with the chief complaint of left lower dental pain, described as severe and similar to prior episodes, Quality is described as aching, and is localized to the mouth. Patient reports no radiation. Patient started experiencing this month(s) and it has been constant. No relieving factors improve symptom(s), Eating worsens symptoms . Patient notes no other symptoms.. Patient did receive the following treatments prior to arrival, none Related Data Home Medications Medication Instructions Recorded Confirmed divalproex 500 mg tablet,extended 1,000 mg PO QHS #180 tab 05/09/20 09/09/20 release 24 hr buprenorphine 8 mg-naloxone 2 mg 1 film SUBLINGUAL DAILY #28 ea MDD 07/30/20 09/09/20 sublingual film 10 mg penicillin V potassium 500 mg PO QID 10 Days #40 tab 09/09/20 methylphenidate HCl 10 mg tablet 20 mg PO TID #168 tab MDD 60 mg 09/16/20 Previous Rx's Medication Instructions Recorded divalproex 500 mg tablet,extended 1,000 mg PO QHS #180 tab 05/09/20 release 24 hr buprenorphine 8 mg-naloxone 2 mg 1 film SUBLINGUAL DAILY #28 ea MDD 07/30/20 sublingual film 10 mg penicillin V potassium 500 mg PO QID 10 Days #40 tab 09/09/20 methylphenidate HCl 10 mg tablet 20 mg PO TID #168 tab MDD 60 mg 09/16/20 Allergies Allergy/AdvReac Type Severity Reaction Status Date / Time No Known Allergies Allergy Verified 09/19/20 21:23 General STEFANO: 5 Review of Systems Constitutional Constitutional: Reports as per HPI, Denies chills, Denies fatigue, Denies fever(s), Denies headache(s) and Denies poor appetite Eyes Eyes: Denies change in vision and Denies irritation ENT Ears, Nose, Mouth, and Throat: Reports as per HPI, Reports dental pain, Denies dysphagia, Denies dizziness, Denies dry mouth, Denies ear discharge, Denies otalgia, Reports facial pain, Denies headache(s), Denies hoarseness, Denies lip swelling, Denies nasal congestion, Denies odynophagia and Denies sore throat Cardiovascular Cardiovascular: Reports as per HPI and Denies chest pain Respiratory Respiratory: Reports as per HPI and Denies cough Gastrointestinal Gastrointestinal: Reports as per HPI, Denies dysphagia, Denies nausea, Denies odynophagia and Denies vomiting Integumentary/Breasts Skin/Breast: Reports as per HPI, Denies erythema, Denies rash and Denies skin pain Neurologic Neurologic: Reports as per HPI, Denies dizziness and Denies headache(s) Endocrine Endocrine: Denies fatigue Allergic/Immunologic Allergic/Immunologic: Denies lip swelling [facility] Medical History Anxiety Depression Mood swings Opioid abuse Hx of heroin use. Enrolled in [facility] and stopped treatment. + opioids and Subutex on urine tox. Opioid dependence on agonist therapy Surgical History S/P tonsillectomy Family History Mother Alcohol abuse Bipolar affective disorder Substance abuse Social History Smoking/Tobacco Use Status: Current every day Tobacco Type: cigarettes Smoking risk assessment performed?: Yes Alcohol Intake: never Drug use: Never Substance use type: does not use Adopted: Yes Household members: significant other and children Housing: house Number of Children: 2 Pets and animals: Yes Pets and animals: dog(s) What is your relationship status?: living with partner Panel score (0-1 are the most socially isolated patients): 1 What type of physical activity do you participate in: regular exercise Duration: 45-60 minutes/day Frequency: 5-6 times per week Seatbelt use: always Do you feel safe at home: Yes Do you feel safe in your relationship?: Yes History History 2 Para 2 Hx # Term Pregnancies 2 Multiple births 0 Hx # Pregnancies 0 Ectopic pregnancies 0 AB induced 0 Hx Number of Living Children 2 AB spontaneous 0 Past Pregnancies Del. Date GA/Weeks # Outcome Route Wgt Sex Labor Lgth Anesthesia Location Prov Complic 09/17/16 41 No Successful vaginal 3657.088 g Male 8 hrs [facility] [place] 12/01/18 39 No Successful vaginal 4025.632 g Male 2 hrs. 7 min. Exam Const General: cooperative, healthy appearing, comfortable, no acute distress, well developed and well groomed Nutritional Appearance: average body habitus and well nourished Orientation: alert and awake [facility] Head: normal to inspection, normocephalic and atraumatic Ears: hearing grossly normal bilaterally, external ears normal and TM's normal bilaterally General nose exam: external nose normal and nares normal Face and sinus: normal facial exam, sinuses nontender and face symmetric Mouth: oral mucosae normal, lip normal, tongue normal, salivary ducts normal, oropharynx normal, moist mucous membranes, no trismus and No restricted motion Teeth and gingiva: gingiva normal and caries (fractured #17 tooth) Throat: posterior oropharynx normal, tonsils normal and uvula midline Eyes General: appearance normal, both eyes and all related structures Neck Neck: normal visual inspection, full ROM, no lymphadenopathy, supple and no anterior neck swelling Resp Effort & Inspection: normal respiratory effort, able to speak in complete sentences and no respiratory distress Auscultation: clear to auscultation bilaterally, no rales, no rhonchi and no wheezes Cardio Rate: regular rate Rhythm: regular rhythm Heart Sounds: S1 normal and S2 normal Skin General skin exam: no rashes or lesions noted Trauma: no lacerations or abrasions Neuro General: patient alert and patient awake Cognition: normal cognition Speech: speech normal Gait: normal gait Psych Appearance: grossly normal and well kempt Mental Status: mental status grossly normal Speech and Movement: speech and movement normal
[2020-09-19 21:20] VITALS: BP 134/84; PULSE 78; RESP 16; TEMP 36.8; O2SAT 100
[2020-09-19] MEDS: Benzocaine 20% Gel 30 GM JAR MM (21:42)
== END 2020-09-19 21:46 | disposition home or self-care (01) ==
LOC: ER 21:46
PROVIDERS: Emergency Provider Physician Assistant; PCP Nurse Practitioner
DX: R68.84 Jaw pain (principal); F11.10 Opioid abuse, uncomplicated
CPT/HCPCS: 99283

== ENCOUNTER 2021-02-03 14:47 | Outpatient (CLI) | payer MEDICAID, SELFPAY ==
--- NOTE | 2021-02-03 14:45 | RT.EKG_ITS ---
APPROVED REPORT Exam: Resting ECG Patient Location: O HR:86 bpm ECG Measurements Heart Rate 86 AXIS HI 161 P 54 QRSd 102 QRS 61 QT 366 T 60 QTc 439 Conclusion Sinus rhythm...normal P axis, V-rate 60- 99
== END 2021-02-03 14:48 | disposition home or self-care (01) ==
LOC: DI.KIM 14:47
PROVIDERS: PCP Nurse Practitioner; Visit Provider Nurse Practitioner
DX: Z51.81 Encounter for therapeutic drug level monitoring (principal)
CPT/HCPCS: 93010

== ENCOUNTER 2021-03-20 13:17 | Emergency (ER) | payer MEDICAID, SELFPAY ==
[2021-03-20 13:20] VITALS: BP 120/74; PULSE 69; RESP 20; TEMP 36.3; O2SAT 100
--- NOTE | 2021-03-20 13:30 | ED.GENADUL_ITS ---
Discharge Plan Disposition Patient Disposition: HOME Condition: Stable Discharge Details Clinical Impression: Encounter for drug screening Primary Care Provider: Nicole Tena ED Provider: Flora Elmore Home Meds and New Rx's Prescriptions: No Action divalproex [Depakote ER] 500 mg tablet extended release 24 hr 1,000 mg PO QHS Qty: 180 RF: 1 buprenorphine-naloxone 12-3 mg film 1 film sublingual DAILY Qty: 28 RF: 0 Medical Decision Making Informed by staffing associate that patient left after giving a urine sample prior to receiving her discharge instructions or receiving her drug screen result. Patient states that she will look up on her portal for the result. HPI General Mode of arrival: ambulatory . Date/Time Provider Initiated Documentation: 03/20/21 13:24 . Limitations to Documentation: no limitations . Information obtained by: patient . HPI Narrative: 22-year-old female presents the ER requesting a urine drug screen due to some issues with Department of children's use and family. Patient does take Suboxone daily which is prescribed through her primary care provider. I did discuss with her that this is not a legal lab test nor is not holdable in court. I did encourage her to seek a illegal drug screen through the way of the with the court system. Patient verbalizes understanding with still like to get a urine drug screen she has no other complaints at this time. Related Data Home Medications Medication Instructions Recorded Confirmed divalproex 500 mg tablet,extended 1,000 mg PO QHS #180 tab 05/09/20 03/20/21 release 24 hr buprenorphine 12 mg-naloxone 3 mg 1 film SUBLINGUAL DAILY #28 ea 03/19/21 03/20/21 sublingual film Previous Rx's Medication Instructions Recorded divalproex 500 mg tablet,extended 1,000 mg PO QHS #180 tab 05/09/20 release 24 hr buprenorphine 12 mg-naloxone 3 mg 1 film SUBLINGUAL DAILY #28 ea 03/19/21 sublingual film Allergies Allergy/AdvReac Type Severity Reaction Status Date / Time No Known Allergies Allergy Verified 03/17/21 10:59 General Stated Complaint: GenMedical STEFANO: 5 Review of Systems Narrative: No complaints request for drug screen. All systems reviewed & are unremarkable except as noted in HPI and below PFSH Medical History Anxiety Depression Mood swings Opioid abuse Hx of heroin use. Enrolled in [facility] and stopped treatment. + opioids and Subutex on urine tox. Opioid dependence on agonist therapy Surgical History S/P tonsillectomy Family History Mother Alcohol abuse Bipolar affective disorder Substance abuse Social History Smoking/Tobacco Use Status: Current every day Tobacco Type: cigarettes Smoking risk assessment performed?: Yes Alcohol Intake: never Drug use: Never Substance use type: does not use Adopted: Yes Household members: significant other and children Housing: house Number of Children: 2 Pets and animals: Yes Pets and animals: dog(s) What is your relationship status?: living with partner Panel score (0-1 are the most socially isolated patients): 1 What type of physical activity do you participate in: regular exercise Duration: 45-60 minutes/day Frequency: 5-6 times per week Seatbelt use: always Do you feel safe at home: Yes Do you feel safe in your relationship?: Yes History History 2 Para 2 Hx # Term Pregnancies 2 Multiple births 0 Hx # Pregnancies 0 Ectopic pregnancies 0 AB induced 0 Hx Number of Living Children 2 AB spontaneous 0 Past Pregnancies Del. Date GA/Weeks # Outcome Route Wgt Sex Labor Lgth Anesthes ia Location [facility] 09/17/16 41 No Successful vaginal 3657.088 g Male 8 hrs [facility] - [place] 12/01/18 39 No Successful vaginal 4025.632 g Male 2 hrs. 7 min. Exam Narrative Exam Narrative: Constitutional: Alert and oriented x3. Appears stated age. Normal body habitus. Head: Normocephalic, no trauma. Eyes: Eyelids symmetrical without lesions, discharge, or swelling. Resp: No signs of respiratory distress breathing eupneic Musculoskeletal: Normal gait, 5/5 strength to all four extremities. Skin: No suspicious rashes or lesions. Capillary refill less than 2 sec. Neurologic: Alert and oriented x 3. DTR's intact. Hematologic/Lymphatic: No ecchymosis, no lymphadenopathy. Course Vital Signs Vital signs: Vital Signs Temperature 36.3 C L 03/20/21 13:20 Pulse 69 03/20/21 13:20 Respiratory Rate 20 03/20/21 13:20 Blood Pressure 120/74 03/20/21 13:20 Pulse Oximetry 100 03/20/21 13:20 Temperature 36.3 C L 03/20/21 13:20 Temperature Source Skin 03/20/21 13:20 Pulse 69 03/20/21 13:20 Respiratory Rate 20 03/20/21 13:20 Respiratory Effort Non-Labored 03/20/21 13:23 Blood Pressure 120/74 03/20/21 13:20 Blood Pressure Position Sitting 03/20/21 13:20 Pulse Oximetry 100 03/20/21 13:20 Oxygen Delivery Method Room Air 03/20/21 13:20 Oxygen Flow Rate 0 03/20/21 13:20 Pain Level 0 03/20/21 13:20
[2021-03-20 13:48] LABS: Tricyclic Antidepressants Negative (Negative)
[2021-03-20 13:55] LABS: *AMPHETAMINES SCREEN URINE Negative (Negative); *BARBITURATES SCREEN URINE Negative (Negative); *BENZODIAZEPINES SCREEN URINE Negative (Negative); Cannabinoids THC Negative (Negative); Cocaine Screen,Urine Negative (Negative); METHADONE URINE SCREEN Negative (Negative); OPIATES URINE SCREEN Negative (Negative)
== END 2021-03-20 13:39 | disposition home or self-care (01) ==
PROVIDERS: Emergency Provider Registered Nurse Emergency; PCP Nurse Practitioner
DX: Z01.89 Encounter for other specified special examinations (principal); Z53.29 Procedure and treatment not carried out because of patient's decision for other reasons
CPT/HCPCS: 80307; 99281

== ENCOUNTER 2021-04-21 15:39 | Outpatient (REF) | payer MEDICAID, SELFPAY ==
[2021-04-21 16:54] LABS: *AMPHETAMINES SCREEN URINE Negative (Negative); *BARBITURATES SCREEN URINE Negative (Negative); *BENZODIAZEPINES SCREEN URINE Negative (Negative); Cannabinoids THC Negative (Negative); Cocaine Screen,Urine Positive (Negative); METHADONE URINE SCREEN Negative (Negative); OPIATES URINE SCREEN Negative (Negative)
[2021-04-21 16:57] LABS: Tricyclic Antidepressants Negative (Negative)
[2021-04-24 11:19] LABS: Benzoylecgonine 391 ng/mL (Cutoff: 50); Cocaine Negative ng/mL (Cutoff: 50); Cocaine Interpretation Positive.
[2021-04-26 13:00] LABS: Methylphenidate 1094 ng/mL (Cutoff: 10)
== END 2021-04-21 15:40 | disposition home or self-care (01) ==
LOC: LBN 15:39
PROVIDERS: PCP Nurse Practitioner; Visit Provider Nurse Practitioner
DX: F11.20 Opioid dependence, uncomplicated (principal); F98.8 Other specified behavioral and emotional disorders with onset usually occurring in childhood and adolescence
CPT/HCPCS: 80307; 80360; 80353

== ENCOUNTER 2022-03-31 12:50 | Emergency (ER) | payer MEDICAID, SELFPAY ==
[2022-03-31 13:04] VITALS: BP 134/95; PULSE 105; RESP 16; TEMP 37.1; O2SAT 100
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
--- NOTE | 2022-03-31 14:11 | NUR.NOTE ---
Addendum entered by Melissa Gusman 03/31/22 16:26: Patient called back stating that the prior authorization needs to say early refill, with leaving date to return date 05/25/22. Izzy resent this. Original Note: Nursing Note: 1400 patient called stating that she needs a prior authorization of the prescription we send with her. I spoke with Izzy [facility] [employer] [facility] and she stated it can take up to 24 to 72 hrs for authorization. After speaking with the patient, she decided to fill the prescription at the pharmacy listed in the chart. The authorization will be sent there by Izzy.
== END 2022-03-31 13:35 | disposition home or self-care (01) ==
PROVIDERS: Emergency Provider Emergency Medicine; PCP Nurse Practitioner
DX: F43.10 Post-traumatic stress disorder, unspecified (principal); F98.8 Other specified behavioral and emotional disorders with onset usually occurring in childhood and adolescence
CPT/HCPCS: 99283

== ENCOUNTER 2022-08-11 19:34 | Emergency (ER) | payer MEDICAID, SELFPAY ==
[2022-08-11 19:43] VITALS: BP 159/90; PULSE 131; RESP 16; TEMP 36.8; O2SAT 100
[2022-08-11 20:07] LABS: Bilirubin Negative (Negative); Blood Negative (Negative); Clarity Sl Cloudy (Clear); Glucose Negative (Negative); Ketones Negative (Negative); Leukocyte Esterase Negative (Negative); Nitrite Positive (Negative); Specific Gravity 1.025 (1.005-1.025)
[2022-08-11 20:14] LABS: Bacteria Moderate HPF (Negative); C & S Indicated? No/Sq. Contamination; Crystals Negative HPF (Negative); Epithelial Cells Many HPF (Negative); Mucus Negative (Negative); RBC 0-2 HPF (0-2)
[2022-08-11 21:00] VITALS: RESP 16
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
== END 2022-08-11 20:17 | disposition left against medical advice (07) ==
PROVIDERS: Emergency Provider Student in an Organized Health Care Education/Training Program; PCP Nurse Practitioner Family
DX: N39.0 Urinary tract infection, site not specified (principal); J02.9 Acute pharyngitis, unspecified; R00.0 Tachycardia, unspecified; F17.210 Nicotine dependence, cigarettes, uncomplicated
CPT/HCPCS: 81025; 99283; 81003; 81015; 99284

== ENCOUNTER 2022-10-15 19:49 | Emergency (ER) | payer MEDICAID, SELFPAY ==
[2022-10-15 20:07] VITALS: BP 127/78; PULSE 116; RESP 16; TEMP 37; O2SAT 100
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
== END 2022-10-15 21:29 | disposition home or self-care (01) ==
PROVIDERS: Emergency Provider Nurse Practitioner Family; PCP Nurse Practitioner Family
DX: F98.8 Other specified behavioral and emotional disorders with onset usually occurring in childhood and adolescence (principal)
CPT/HCPCS: 99281

== ENCOUNTER 2023-01-28 19:48 | Emergency (ER) | payer MEDICAID, SELFPAY ==
[2023-01-28 19:51] VITALS: BP 134/77; PULSE 74; RESP 16; TEMP 36.3; O2SAT 98
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
[2023-01-28] MEDS: Amox. 875/Clav. 125, 2 TABS/BTL 1 TAB PO (20:53)
== END 2023-01-28 20:56 | disposition home or self-care (01) ==
PROVIDERS: Emergency Provider Student in an Organized Health Care Education/Training Program; PCP Nurse Practitioner Family
DX: R68.84 Jaw pain (principal)
CPT/HCPCS: 64400

== ENCOUNTER 2023-01-29 01:58 | Emergency (ER) | payer MEDICAID, SELFPAY ==
[2023-01-29 02:01] VITALS: BP 146/93; PULSE 89; RESP 18; TEMP 36.6; O2SAT 100
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
[2023-01-29] MEDS: oxyCODONE 10 MG TAB PO (02:15)
== END 2023-01-29 02:24 | disposition home or self-care (01) ==
PROVIDERS: Emergency Provider Student in an Organized Health Care Education/Training Program; PCP Nurse Practitioner Family
DX: R68.84 Jaw pain (principal)
CPT/HCPCS: 99283

== ENCOUNTER 2023-01-29 16:39 | Emergency (ER) | payer MEDICAID, SELFPAY ==
[2023-01-29 17:00] VITALS: BP 139/80; PULSE 85; RESP 18; O2SAT 99
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
[2023-01-29] MEDS: traMADol 50 MG TAB PO (17:30)
== END 2023-01-29 17:59 | disposition home or self-care (01) ==
PROVIDERS: Emergency Provider Registered Nurse Emergency; PCP Nurse Practitioner Family
DX: R68.84 Jaw pain (principal)
CPT/HCPCS: 99283

== ENCOUNTER 2023-01-31 08:33 | Emergency (ER) | payer MEDICAID, SELFPAY ==
[2023-01-31 08:38] VITALS: BP 126/64; PULSE 70; RESP 18; TEMP 36.8; O2SAT 99
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
== END 2023-01-31 09:24 | disposition home or self-care (01) ==
PROVIDERS: Emergency Provider Physician Assistant; PCP Nurse Practitioner Family
DX: K08.89 Other specified disorders of teeth and supporting structures (principal)
CPT/HCPCS: 99283